=== PATIENT | female | born 1990 | race Caucasian/White ===

== ENCOUNTER 2018-03-28 12:43 | Emergency (ER) | payer OTHER ==
[2018-03-28] MEDS ORDERED: NS 1,000 ML IV ONE ×2 (13:17→13:40)
--- NOTE | 2018-03-28 13:20 | EDPHY ---
H & P Stated Complaint: fever n/v/d since last sunday Time Seen by Provider: 03/28/18 13:09 HPI/ROS: CHIEF COMPLAINT: Vomiting, fever HISTORY OF PRESENT ILLNESS: 27-year-old female presents with vomiting and fever. 1 week ago she developed lack of appetite, associated with nausea and fatigue. Minimal oral intake over the past week. Every time she eats she develops nausea and the needs to lay down because of upper abdominal discomfort. Symptoms continued until 2 days ago, when she had 2 episodes of diarrhea as well. Vomited once yesterday. Today she went to [facility] and was sent here for further evaluation. IVF and Zofran IV given [employer]. Urine is dark brown. REVIEW OF SYSTEMS: complete 10 point ROS negative except at noted in the HPI - Personal History LMP (Females 10-55): 15-21 Days Ago Current Tetanus/Diphtheria Vaccine: Yes - Medical/Surgical History Hx Asthma: No Hx Chronic Respiratory Disease: No Hx Diabetes: No Hx Cardiac Disease: No Hx Renal Disease: No Hx Cirrhosis: No Hx Alcoholism: No Hx HIV/AIDS: No Hx Splenectomy or Spleen Trauma: No Other PMH: denies - Social History Smoking Status: Never smoked - Physical Exam Exam: General Appearance: Alert, pleasant, nontoxic-appearing Eyes: Pupils equal and round, no conjunctival pallor ENT, Mouth: Mucous membranes moist Neck: Normal inspection Respiratory: Lungs are clear to auscultation Cardiovascular: Regular rate and rhythm Gastrointestinal: Abdomen is soft, epigastric tenderness Neurological: A&O, nonfocal, normal gait Skin: Warm and dry Extremities: Normal inspection Psychiatric: Mood and affect normal Constitutional: Initial Vital Signs Temperature (C) 37.7 C 03/28/18 12:49 Heart Rate 89 03/28/18 12:49 Respiratory Rate 16 03/28/18 12:49 Blood Pressure 116/78 03/28/18 12:49 O2 Sat (%) 98 03/28/18 12:49 O2 Delivery Mode Room Air Allergies/Adverse Reactions: No Known Allergies Allergy (Unverified 03/28/18 12:49) Home Medications: Medication Instructions Recorded Sherie Simms 03/28/18 Ondansetron Odt [Zofran Odt 4 mg 4 mg PO Q4 PRN #6 tab 03/28/18 (*)] Pantoprazole Sodium [Protonix 40mg 40 mg PO DAILY #20 tab 03/28/18 (*)] Medical Decision Making - Diagnostics Imaging Results: Abdomen Ultrasound 03/28/18 13:41 Impression: 1. Gallbladder sludge. Consider nuclear medicine HIDA scan if clinically indicated. 2. No cholelithiasis or biliary ductal dilation. Imaging: Discussed imaging studies w/ order desk caller Radiologist ED Course/Re-evaluation: This patient presents with persistent epigastric discomfort, nausea and decreased appetite over the last week. Concern for acute hepatitis, peptic ulcer disease, pancreatitis, cholecystitis. IV normal saline 1 L given. LFTs are normal and there is no evidence of acute hepatitis. Lipase is normal, no evidence of pancreatitis. Right upper quadrant ultrasound ordered to rule out cholecystitis. Otherwise, if right upper quadrant ultrasound is normal, I suspect that she may have peptic ulcer disease, so Protonix 40 mg IV given. Laboratory and ultrasound results discussed with the patient. She feels better after IV fluids and Zofran. Abdominal exam remains benign. I will discharge her home. Abdominal pain precautions given. Differential Diagnosis: Differential diagnosis includes though it is not limited to appendicitis, cholecystitis, diverticulitis, pyelonephritis, bowel perforation, small bowel obstruction. - Data Points Laboratory Results: Laboratory Results 03/28/18 13:08 03/28/18 13:08 Medications Given: Discontinued Medications Sodium Chloride (Ns) 1,000 mls @ 0 mls/hr IV ONCE ONE; Wide Open PRN Reason: Protocol Stop: 03/28/18 13:18 Last Admin: 03/28/18 13:23 Dose: 1,000 mls Sodium Chloride (Ns) 1,000 mls @ 0 mls/hr IV ONCE ONE; Wide Open PRN Reason: Protocol Stop: 03/28/18 13:41 Last Admin: 03/28/18 13:46 Dose: 1,000 mls Pantoprazole Sodium (Protonix) 40 mg IVP EDNOW ONE Stop: 03/28/18 13:42 Last Admin: 03/28/18 13:46 Dose: 40 mg Departure - Departure Disposition: Home, Routine, Self-Care Clinical Impression: Abdominal pain Condition: Good Instructions: Acute Abdominal Pain (ED) Additional Instructions: 1. Clear liquids for 24 hours. 2. Advance diet as tolerated. I suggest the BRAT diet to start: bananas, rice, applesauce and toast. 3. Return for worsening symptoms, persistent vomiting, abdominal pain, any concerns. $. Followup with GI through [facility]. Referrals: ODILIA Mock,. [Clinic] - 1 day, if not improved Stand Alone Forms: Work Excuse Prescriptions: Ondansetron Odt [Zofran Odt 4 mg (*)] 4 mg PO Q4 PRN #6 tab PRN Reason: Nausea Pantoprazole Sodium [Protonix 40mg (*)] 40 mg PO DAILY #20 tab
[2018-03-28 13:22] LABS: PLATELET COUNT 98 10^3/uL (150-400)
[2018-03-28] MEDS ORDERED: PANTOPRAZOLE SODIUM 40 MG VIAL IVP ONE (13:41)
[2018-03-28 14:43] VITALS: BP 97/60
== END 2018-03-28 15:05 | disposition home or self-care (01) ==
DX: R10.13 Epigastric pain (principal); E86.9 Volume depletion, unspecified
CPT/HCPCS: 96374